=== PATIENT | male | born 1965 | race American Indian/Alaskan Native ===

== ENCOUNTER 2017-04-11 08:50 | Emergency (ER) | payer OTHER ==
[2017-04-11] MEDS ORDERED: Sodium Chloride 0.9% 10 ML Syringe FLUSH PRN (08:57)
--- NOTE | 2017-04-11 08:58 | EDM.PDOC ---
ED HPI GENERAL MEDICAL PROBLEM - General Chief Complaint: Cardiovascular Problem Stated Complaint: FROM [facility] [id number] Time Seen by Provider: 04/11/17 08:58 Source of Information: Reports: Patient, RN, RN Notes Reviewed History Limitations: Reports: No Limitations - History of Present Illness INITIAL COMMENTS - FREE TEXT/NARRATIVE: Patient presents to ER with complaint of chest pain radiating to the back. He states he works at [employer] [facility] [facility] at [place] and began having the pain last night and today. Dr. Chiang from [facility] sent him for further evaluation. Patient denies fever, chills, nausea, vomiting and diarrhea. Patient admits to orthopnea. Onset: Today Duration: Constant Location: Reports: Chest Quality: Reports: Ache Severity: Moderate Improves with: Reports: None Worsens with: Reports: None Associated Symptoms: Reports: No Other Symptoms Mid-Sternal Chest Pain Score (Numeric/FACES): 3 - Related Data Allergies Allergy/AdvReac Type Severity Reaction Status Date / Time No Known Allergies Allergy Verified 04/11/17 09:10 Home Meds: Home Meds . [No Known Home Meds] 07/21/15 [History] Past Medical History - Past Surgical History Musculoskeletal Surgical History: Reports: Arthroscopic Knee Social & Family History - Family History Family Medical History: Noncontributory - Tobacco Use Smoking Status *Q: Never Smoker - Recreational Drug Use Recreational Drug Use: No ED ROS GENERAL - Review of Systems Review Of Systems: ROS reveals no pertinent complaints other than HPI. ED EXAM, GENERAL - Physical Exam Exam: See Below Exam Limited By: No Limitations General Appearance: Alert, WD/WN, No Apparent Distress Eye Exam: Bilateral Eye: Normal Inspection Ears: Normal External Exam, Normal Canal, Hearing Grossly Normal, Normal TMs Nose: Normal Inspection, Normal Mucosa, No Blood Throat/Mouth: Normal Inspection, Normal Lips, Normal Teeth, Normal Gums, Normal Oropharynx, Normal Voice, No Airway Compromise Head: Atraumatic, Normocephalic Neck: Normal Inspection, Supple, Non-Tender, Full Range of Motion Respiratory/Chest: No Respiratory Distress, Lungs Clear, Normal Breath Sounds, No Accessory Muscle Use, Chest Non-Tender Cardiovascular: Normal Peripheral Pulses, Regular Rate, Rhythm, No Edema, No Gallop, No JVD, No Murmur, No Rub GI/Abdominal: Normal Bowel Sounds, Soft, Non-Tender, No Organomegaly, No Distention, No Abnormal Bruit, No Mass (Male) Exam: Deferred Rectal (Males) Exam: Deferred Back Exam: Normal Inspection, Full Range of Motion, NT Extremities: Normal Inspection, Normal Range of Motion, Non-Tender, Normal Capillary Refill, No Pedal Edema Neurological: Alert, Oriented, CN II-XII Intact, Normal Cognition, Normal Gait, Normal Reflexes, No Motor/Sensory Deficits Psychiatric: Normal Affect, Normal Mood Skin Exam: Warm, Dry, Intact, Normal Color, No Rash Lymphatic: No Adenopathy Course - Vital Signs Last Recorded V/S: Last Vital Signs Temp 98.4 F 04/11/17 09:12 Pulse 62 04/11/17 09:12 Resp 20 04/11/17 09:12 BP 145/87 H 04/11/17 09:12 Pulse Ox 98 04/11/17 09:12 - Orders/Labs/Meds Orders: Active Orders 24 hr Category Date Time Status Peripheral IV Care [RC] . DIRECTED Care 04/11/17 08:57 Active Peripheral IV Insertion Adult [OM.PC] Stat Oth 04/11/17 08:57 Ordered Labs: Laboratory Tests 04/11/17 04/11/17 04/11/17 Range/Units 08:57 09:06 09:06 WBC 10.0 (5.0-10.0) 10^3/uL RBC 5.21 (4.6-6.2) 10^6/uL Hgb 14.9 (14.0-18.0) g/dL Hct 44.5 (40.0-54.0) % MCV 85.4 (80-100) fL MCH 28.6 (27.0-34.0) pg MCHC 33.5 (33.0-35.0) g/dL Plt Count 260 (150-450) 10^3/uL Neut % (Auto) 67.8 (42.2-75.2) % Lymph % (Auto) 16.3 L (20.5-50.1) % [place] % (Auto) 9.3 H (2-8) % Eos % (Auto) 5.5 H (1.0-3.0) % Baso % (Auto) 1.1 H (0.0-1.0) % PT 10.6 (9.0-12.0) SEC INR 1.1 (0.9-1.2) Sodium (135-145) mmol/L Potassium (3.6-5.0) mmol/L Chloride (101-111) mmol/L Carbon Dioxide (21.0-31.0) mmol/L Anion Gap BUN (7-18) mg/dL Creatinine (0.6-1.3) mg/dL Est Cr Clr Drug Dosing mL/min Estimated GFR (MDRD) BUN/Creatinine Ratio Glucose (74-105) mg/dL Calcium (8.4-10.2) mg/dl Total Bilirubin (0.2-1.0) mg/dL AST (10-42) IU/L ALT (10-60) IU/L Alkaline Phosphatase (42-121) IU/L Troponin I (0.00-0.02) ng/ml B-Natriuretic Peptide (0-100) pg/ml Total Protein (6.7-8.2) g/dl Albumin (3.2-5.5) g/dl Globulin Albumin/Globulin Ratio Urine Color Yellow (YELLOW) Urine Appearance Clear (CLEAR) Urine pH 6.0 (5.0-9.0) Ur Specific [place] 1.020 (1.005-1.030) Urine Protein Negative (NEGATIVE) Urine Glucose (UA) Negative (NEGATIVE) Urine Ketones Negative (NEGATIVE) Urine Occult Blood Negative (NEGATIVE) Urine Nitrite Negative (NEGATIVE) Urine Bilirubin Negative (NEGATIVE) Urine Urobilinogen 0.2 (0.2-1.0) mg/dL Ur Leukocyte Esterase Negative (NEGATIVE) Urine RBC Not seen /HPF Urine WBC 0-5 (0-5/HPF) /HPF Ur Epithelial Cells Rare /HPF Urine Bacteria Not seen (0-FEW/HPF) /HPF Urine Mucus Moderate H /LPF 04/11/17 04/11/17 Range/Units 09:06 09:06 WBC (5.0-10.0) 10^3/uL RBC (4.6-6.2) 10^6/uL Hgb (14.0-18.0) g/dL Hct (40.0-54.0) % MCV (80-100) fL MCH (27.0-34.0) pg MCHC (33.0-35.0) g/dL Plt Count (150-450) 10^3/uL Neut % (Auto) (42.2-75.2) % Lymph % (Auto) (20.5-50.1) % [place] % (Auto) (2-8) % Eos % (Auto) (1.0-3.0) % Baso % (Auto) (0.0-1.0) % PT (9.0-12.0) SEC INR (0.9-1.2) Sodium 137 (135-145) mmol/L Potassium 4.5 (3.6-5.0) mmol/L Chloride 103 (101-111) mmol/L Carbon Dioxide 27.0 (21.0-31.0) mmol/L Anion Gap 11.5 BUN 12 (7-18) mg/dL Creatinine 0.9 (0.6-1.3) mg/dL Est Cr Clr Drug Dosing 101.39 mL/min Estimated GFR (MDRD) > 60 BUN/Creatinine Ratio 13.33 Glucose 114 H (74-105) mg/dL Calcium 9.0 (8.4-10.2) mg/dl Total Bilirubin 1.1 H (0.2-1.0) mg/dL AST 30 (10-42) IU/L ALT 25 (10-60) IU/L Alkaline Phosphatase 79 (42-121) IU/L Troponin I < 0.02 (0.00-0.02) ng/ml B-Natriuretic Peptide 12 (0-100) pg/ml Total Protein 7.4 (6.7-8.2) g/dl Albumin 4.2 (3.2-5.5) g/dl Globulin 3.2 Albumin/Globulin Ratio 1.31 Urine Color (YELLOW) Urine Appearance (CLEAR) Urine pH (5.0-9.0) Ur Specific [place] (1.005-1.030) Urine Protein (NEGATIVE) Urine Glucose (UA) (NEGATIVE) Urine Ketones (NEGATIVE) Urine Occult Blood (NEGATIVE) Urine Nitrite (NEGATIVE) Urine Bilirubin (NEGATIVE) Urine Urobilinogen (0.2-1.0) mg/dL Ur Leukocyte Esterase (NEGATIVE) Urine RBC /HPF Urine WBC (0-5/HPF) /HPF Ur Epithelial Cells /HPF Urine Bacteria (0-FEW/HPF) /HPF Urine Mucus /LPF Meds: Medications Discontinued Medications Generic Name Dose Route Start Last Admin Trade Name Freq PRN Reason Stop Dose Admin Iopamidol 50 ml 01/30/18 10:54 04/11/17 10:59 Isovue-300 (61%) IVPUSH 04/11/17 10:55 50 ml ONETIME ONE Administration Iopamidol 75 ml 04/11/17 10:55 04/11/17 10:59 Isovue-300 (61%) IVPUSH 04/11/17 10:56 75 ml ONETIME ONE Administration Sodium Chloride 10 ml 04/11/17 08:57 04/11/17 09:09 Saline Flush FLUSH 10 ml ASDIRECTED PRN Administration Keep Vein Open Departure - Departure Time of Disposition: 11:58 Disposition: Home, Self-Care 01 Condition: Fair Clinical Impression: Non-cardiac chest pain Instructions: Nonspecific Chest Pain, [id number] Referrals: Jose Manuel Mccabe MD [Primary Care Provider] - Forms: ED Department Discharge Additional Instructions: Drink plenty of water Follow up with your primary care facility this week. Return to ER as necessary - My Orders Last 24 Hours: My Active Orders 04/11/17 08:57 Peripheral IV Care [RC] . DIRECTED Peripheral IV Insertion Adult [OM.PC] Stat - Assessment/Plan Last 24 Hours: My Active Orders 04/11/17 08:57 Peripheral IV Care [RC] . DIRECTED Peripheral IV Insertion Adult [OM.PC] Stat
[2017-04-11 09:15] VITALS: BP 145/87
[2017-04-11 09:33] LABS: ANION GAP 11.5; CHLORIDE,CL 103 mmol/L (101-111); SODIUM,NA 137 mmol/L (135-145)
[2017-04-11] MEDS ORDERED: Iopamidol 612 MG/ML 50 ML SDV IVPUSH ONE (10:54)
[2017-04-11] MEDS ORDERED: Iopamidol 612 MG/ML 75 ML Bottle IVPUSH ONE (10:55)
--- NOTE | 2017-04-13 18:38 | EKG ---
04/11/2017 - ANNA GRULLON - FINDINGS: A 12-lead EKG shows normal sinus rhythm with heart rate of 63. No significant ST elevation or ST depression noted on this 12-lead EKG. [facility] /[id number]
== END 2017-04-11 12:19 | disposition home or self-care (01) ==
LOC: DL.ED 08:50
DX: R07.89 Other chest pain (principal)
CPT/HCPCS: 36415; 71045; 71260; 74177; 80053; 81001; 83880; 84484; 85025; 85610; 99285; J7050; Q9967

== ENCOUNTER 2019-08-02 06:28 | Day surgery (SDC) | payer BC, OTHER ==
[~2019-08-02 06:28] MED LIST: Dextrose 5%-0.45% NaCl 1,000 ML IV SCH; Sodium Chloride 0.9% 10 ML Syringe FLUSH PRN
[2019-08-02] MEDS ORDERED: Midazolam 1 MG/ML 2 ML SDV IV ONE ×3 (06:29→07:31)
[2019-08-02] MEDS ORDERED: fentaNYL 100 MCG/2 ML SDV IV ONE ×3 (06:29→07:30)
[2019-08-02] MEDS ORDERED: Midazolam 1 MG/ML 2 ML SDV ONE (06:43)
[2019-08-02] MEDS ORDERED: fentaNYL 100 MCG/2 ML SDV ONE (06:43)
[2019-08-02 09:36] VITALS: BP 140/81; PULSE 65
--- NOTE | 2019-08-02 10:19 | OR ---
DATE: 08/02/2019 PROCEDURE: Total colonoscopy. INSTRUMENT USED: PCF-H190DL Olympus video colonoscope. PREMEDICATIONS: Fentanyl 100 mcg intravenous, Versed 2 mg intravenous. Nasal O2 cannula. The procedure was done under pulse oximetry, BP recording, and cardiac exercise specialist. INDICATION: The patient with Hemoccult positive stools. Colonoscopic examination is done for detection of any polypoid lesions and removal, endoscopic hemostasis therapy if needed. DESCRIPTION OF PROCEDURE: Initial rectal exam was unremarkable. Rigid anoscopy showed small internal hemorrhoids without bleeding from them. The colonoscope was passed with ease. Scattered diverticula were noted in the distal left colon along with some deformity. The scope was passed with ease up to the ileocecal area. Photographs were taken of the normal-appearing cecum identified by landmarks of appendiceal orifice and double-bulged ileocecal folds. No bleeding was noted from any of the visualized areas at the commencement of the examination. The bowel preparation was found to be adequate, [place] scale 2 in all the regions, total score 6. No stricture. No vascular ectasia. No large isolated ulcerations seen. No evidence of diffuse inflammatory bowel disease in the form of friability, contact bleeding, or ulcerations. No polyp or tumor mass identified. Probing the proximal sides of folds and flexures, using adequate distention and clearing of the stool material, withdrawal of the scope was made, cecum to rectum time over 6 minutes. No bleeding was noted from any of the visualized areas at the completion of examination. IMPRESSION: 1. Internal hemorrhoids. 2. Diverticulosis. The patient tolerated the procedure well. [facility] /[id number]
--- NOTE | 2019-08-02 12:31 | LETTER ---
08/02/2019 RE: DYLAN GONZALES : 1965 [place] Alegria [facility] [address] [place] [address] Dear Mr. Alegria: Mr. Dylan Gonzales had colonoscopic examination done this morning and he tolerated the procedure well. I herewith send a copy of the endoscopy note and photographs for your review. Thank you. Sincerely, [facility] /[id number]
== END 2019-08-02 09:51 | disposition home or self-care (01) ==
LOC: DL.ENDO 06:28
PROVIDERS: ATTEND Internal Medicine Gastroenterology
DX: K64.8 Other hemorrhoids (principal); K57.30 Diverticulosis of large intestine without perforation or abscess without bleeding; E66.09 Other obesity due to excess calories; I10 Essential (primary) hypertension; E78.5 Hyperlipidemia, unspecified; E11.9 Type 2 diabetes mellitus without complications; N40.0 Benign prostatic hyperplasia without lower urinary tract symptoms; M54.5 Low back pain; Z87.828 Personal history of other (healed) physical injury and trauma; Z90.49 Acquired absence of other specified parts of digestive tract; Z90.89 Acquired absence of other organs; Z79.82 Long term (current) use of aspirin; Z98.890 Other specified postprocedural states; Z68.38 Body mass index [BMI] 38.0-38.9, adult
CPT/HCPCS: G0121; J2250; J3010; J7042

== ENCOUNTER 2019-10-15 00:36 | Emergency (ER) | payer BC, OTHER ==
[2019-10-15] MEDS ORDERED: Acetaminophen/HYDROcodone 325-10 MG Tab PO ONE (00:37)
[2019-10-15 00:53] VITALS: BP 147/85; PULSE 81
[2019-10-15] MEDS ORDERED: HYDROmorphone 1 MG/ML Syringe IVPUSH ONE ×2 (00:53→02:23)
[2019-10-15] MEDS ORDERED: Sodium Chloride 0.9% 1,000 ML IV ONE (00:53)
--- NOTE | 2019-10-15 00:56 | EDM.PDOC ---
ED HPI GENERAL MEDICAL PROBLEM - General Chief Complaint: Abdominal Pain Stated Complaint: STOMACH RIGHT TESTICLE BACK HURTING Time Seen by Provider: 10/15/19 00:45 Source of Information: Reports: Patient History Limitations: Reports: No Limitations - History of Present Illness INITIAL COMMENTS - FREE TEXT/NARRATIVE: This 54 yo male patient reports to the ED with right lower quadrant pain, right testicular pain and right flank pain. The patient reports his symptoms started at about 2200 last night and have continued to get worse since onset. The patient denies any recent injury or trauma to the area. The patient reports he took ibuprofen (800 mg) while at home with no relief. The patient reports his appendix has been removed. Onset Date: 10/14/19 Onset Time: 22:00 Duration: Constant, Getting Worse Location: Reports: Abdomen, Other (right testicle) Quality: Reports: Ache, Dull, Stabbing Severity: Severe Improves with: Reports: None Worsens with: Reports: None Context: Reports: Other Associated Symptoms: Reports: No Other Symptoms Treatments [employer] PR[employer]CTION MANAGER: Reports: NSAIDS Right Lower Abdomen Pain Score (Numeric/FACES): 8 - Related Data Allergies Allergy/AdvReac Type Severity Reaction Status Date / Time No Known Allergies Allergy Verified 10/15/19 00:46 Home Meds: Home Meds Albuterol/Ipratropium [DuoNeb 3.0-0.5 MG/3 ML] 3 mg INH DAILY PRN 08/01/19 [History] Aspirin 81 mg CHEW DAILY 08/01/19 [History] Gabapentin [Neurontin] 1 tab PO BID 08/01/19 [History] Rosuvastatin [Crestor] 20 mg PO DAILY 08/01/19 [History] lisinopriL [Lisinopril] 20 mg PO DAILY 08/01/19 [History] metFORMIN [Glucophage] 500 mg PO BID 08/01/19 [History] Past Medical History HEENT History: Reports: Other (See Below) Other HEENT History: Post Tonsillectomy Cardiovascular History: Reports: Hypertension Respiratory History: Reports: Bronchitis, Recurrent, Sleep Apnea Other Respiratory History: possible apnea, has a test August Gastrointestinal History: Reports: GERD, Other (See Below) Other Gastrointestinal History: Positive hemoocult stools. Status post appendectomy. Hx of GERD Genitourinary History: Reports: Prostate Disorder Other Genitourinary History: Benign prostate hypertrophy Musculoskeletal History: Reports: Back Pain, Chronic Other Musculoskeletal History: Status post left knee trauma and surgery. DDD. Sacroiliitis. Myofascial pain. Myalgia. Hx of: achilles tendon rupture-right, CTS Neurological History: Reports: Other (See Below) Other Neuro History: Chronic right sided low back pain Psychiatric History: Reports: Depression Other Psychiatric History: Hx of depression Endocrine/Metabolic History: Reports: Diabetes, Type II, Obesity/BMI 30+ Other Endocrine/Metabolic History: Hyperlipidemia Hematologic History: Reports: None Immunologic History: Reports: None Oncologic (Cancer) History: Reports: None Dermatologic History: Reports: None - Infectious Disease History Infectious Disease History: Reports: None - Past Surgical History HEENT Surgical History: Reports: Tonsillectomy Cardiovascular Surgical History: Reports: None Respiratory Surgical History: Reports: None GI Surgical History: Reports: Appendectomy Male Surgical History: Reports: None Endocrine Surgical History: Reports: Adrenal Gland Neurological Surgical History: Reports: None Musculoskeletal Surgical History: Reports: Arthroscopic Knee, Other (See Below) Other Musculoskeletal Surgeries/Procedures:: Right achilles tendon repair Dermatological Surgical History: Reports: None Social & Family History - Family History Family Medical History: Noncontributory Cardiac: Reports: Other (See Below) Other Cardiac Family History: Multiple immediate family members with heart disease and DM-endocrine. Father smoked with related difficulties - Caffeine Use Caffeine Use: Reports: Soda Other Caffeine Use: 3 cups per day ED ROS GENERAL - Review of Systems Review Of Systems: Comprehensive ROS is negative, except as noted in HPI. ED EXAM, RENAL/ - Physical Exam Exam: See Below Exam Limited By: No Limitations General Appearance: Alert, WD/WN, Moderate Distress Eye Exam: Bilateral Eye: EOMI, Normal Inspection, PERRL Ears: Normal External Exam, Normal Canal, Hearing Grossly Normal, Normal TMs Nose: Normal Inspection, Normal Mucosa, No Blood Throat/Mouth: Normal Inspection Head: Atraumatic, Normocephalic Neck: Normal Inspection, Supple, Non-Tender, Full Range of Motion Respiratory/Chest: No Respiratory Distress, Lungs Clear, Normal Breath Sounds, No Accessory Muscle Use, Chest Non-Tender Cardiovascular: Normal Peripheral Pulses, Regular Rate, Rhythm, No Edema, No Gallop, No JVD, No Murmur, No Rub GI/Abdominal: Normal Bowel Sounds, No Organomegaly, No Distention, No Abnormal Bruit, No Mass, Pelvis Stable, Tender (RLQ) (Male) Exam: Testicular Tenderness (L), Testicular Tenderness (R) Rectal (Males) Exam: Deferred Back Exam: CVA Tenderness (R) Extremities: Normal Inspection, Normal Range of Motion, Non-Tender, Normal Capillary Refill, No Pedal Edema Neurological: Alert, Oriented, CN II-XII Intact, Normal Cognition, Normal Gait, Normal Reflexes, No Motor/Sensory Deficits Psychiatric: Normal Affect, Normal Mood Skin Exam: Warm, Dry, Intact, Normal Color, No Rash Lymphatic: No Adenopathy Course - Vital Signs Last Recorded V/S: Last Vital Signs Temp 36.3 C 10/15/19 00:46 Pulse 81 10/15/19 00:46 Resp 20 10/15/19 00:46 BP 147/85 H 10/15/19 00:46 Pulse Ox 100 10/15/19 00:46 - Orders/Labs/Meds Orders: Active Orders 24 hr Category Date Time Status CULTURE BLOOD [BC] Stat Lab 10/15/19 00:50 Received Labs: Laboratory Tests 10/15/19 10/15/19 10/15/19 Range/Units 00:50 00:50 00:50 WBC 17.7 H (5.0-10.0) 10^3/uL RBC 5.13 (4.6-6.2) 10^6/uL Hgb 14.9 (14.0-18.0) g/dL Hct 44.4 (40.0-54.0) % MCV 86.5 (80-100) fL MCH 29.0 (27.0-34.0) pg MCHC 33.6 (33.0-35.0) g/dL Plt Count 313 (150-450) 10^3/uL Neut % (Auto) 81.1 H (42.2-75.2) % Lymph % (Auto) 9.3 L (20.5-50.1) % [place] % (Auto) 8.3 H (2-8) % Eos % (Auto) 0.8 L (1.0-3.0) % Baso % (Auto) 0.5 (0.0-1.0) % Sodium 142 (136-145) mmol/L Potassium 4.1 (3.5-5.1) mmol/L Chloride 106 (98-107) mmol/L Carbon Dioxide 24 (21-32) mmol/L Anion Gap 16.1 H (7-13) mEq/L BUN 23 H (7-18) mg/dL Creatinine 1.46 H (0.70-1.30) mg/dL Est Cr Clr Drug Dosing 61.11 mL/min Estimated GFR (MDRD) 51 BUN/Creatinine Ratio 15.8 (No establ ref range) Glucose 126 H (74-99) mg/dL Lactic Acid 2.7 H* (0.4-2.0) mmol/L Calcium 9.1 (8.5-10.1) mg/dL Total Bilirubin 0.3 (0.2-1.0) mg/dL AST 16 (15-37) U/L ALT 24 (16-63) U/L Alkaline Phosphatase 94 (46-116) U/L Total Protein 7.8 (6.4-8.2) g/dL Albumin 4.3 (3.4-5.0) g/dL Globulin 3.5 Albumin/Globulin Ratio 1.2 Urine Color (YELLOW) Urine Appearance (CLEAR) Urine pH (5.0-9.0) Ur Specific [place] (1.005-1.030) Urine Protein (NEGATIVE) Urine Glucose (UA) (NEGATIVE) Urine Ketones (NEGATIVE) Urine Occult Blood (NEGATIVE) Urine Nitrite (NEGATIVE) Urine Bilirubin (NEGATIVE) Urine Urobilinogen (0.2-1.0) mg/dL Ur Leukocyte Esterase (NEGATIVE) U Hyaline Cast (Auto) Urine RBC /HPF Urine WBC (0-5/HPF) /HPF Ur Epithelial Cells (NOT SEEN) /HPF Calcium Oxalate Crystal (NOT SEEN) /HPF Amorphous Sediment (NOT SEEN) /HPF Urine Bacteria (0-FEW/HPF) /HPF Urine Mucus (NOT SEEN) /LPF Ethyl Alcohol < 3 (0) mg/dL 10/15/19 Range/Units 00:59 WBC (5.0-10.0) 10^3/uL RBC (4.6-6.2) 10^6/uL Hgb (14.0-18.0) g/dL Hct (40.0-54.0) % MCV (80-100) fL MCH (27.0-34.0) pg MCHC (33.0-35.0) g/dL Plt Count (150-450) 10^3/uL Neut % (Auto) (42.2-75.2) % Lymph % (Auto) (20.5-50.1) % [place] % (Auto) (2-8) % Eos % (Auto) (1.0-3.0) % Baso % (Auto) (0.0-1.0) % Sodium (136-145) mmol/L Potassium (3.5-5.1) mmol/L Chloride (98-107) mmol/L Carbon Dioxide (21-32) mmol/L Anion Gap (7-13) mEq/L BUN (7-18) mg/dL Creatinine (0.70-1.30) mg/dL Est Cr Clr Drug Dosing mL/min Estimated GFR (MDRD) BUN/Creatinine Ratio (No establ ref range) Glucose (74-99) mg/dL Lactic Acid (0.4-2.0) mmol/L Calcium (8.5-10.1) mg/dL Total Bilirubin (0.2-1.0) mg/dL AST (15-37) U/L ALT (16-63) U/L Alkaline Phosphatase (46-116) U/L Total Protein (6.4-8.2) g/dL Albumin (3.4-5.0) g/dL Globulin Albumin/Globulin Ratio Urine Color Yellow (YELLOW) Urine Appearance Slightly cloudy (CLEAR) Urine pH 6.0 (5.0-9.0) Ur Specific [place] >= 1.030 (1.005-1.030) Urine Protein 100 H (NEGATIVE) Urine Glucose (UA) Negative (NEGATIVE) Urine Ketones Negative (NEGATIVE) Urine Occult Blood Trace-intact H (NEGATIVE) Urine Nitrite Negative (NEGATIVE) Urine Bilirubin Negative (NEGATIVE) Urine Urobilinogen 0.2 (0.2-1.0) mg/dL Ur Leukocyte Esterase Negative (NEGATIVE) U Hyaline Cast (Auto) Rare Urine RBC 0-5 /HPF Urine WBC 0-5 (0-5/HPF) /HPF Ur Epithelial Cells Rare (NOT SEEN) /HPF Calcium Oxalate Crystal Few H (NOT SEEN) /HPF Amorphous Sediment Few (NOT SEEN) /HPF Urine Bacteria Occasional (0-FEW/HPF) /HPF Urine Mucus Occasional (NOT SEEN) /LPF Ethyl Alcohol (0) mg/dL Meds: Medications Discontinued Medications Generic Name Dose Route Start Last Admin Trade Name Gab PRN Reason Stop Dose Admin Hydrocodone Bitart/Acetaminophen Confirm 10/15/19 02:37 10/15/19 03:00 Clawson 325-10 Mg Administered 10/15/19 02:38 Not Given Dose 1 tab .ROUTE .STK-MED ONE Hydromorphone HCl 1 mg 10/15/19 00:53 10/15/19 01:00 Dilaudid IVPUSH 10/15/19 00:54 1 mg ONETIME ONE Administration Hydromorphone HCl 1 mg 10/15/19 02:23 10/15/19 02:28 Dilaudid IVPUSH 10/15/19 02:24 1 mg ONETIME ONE Administration Sodium Chloride 1,000 mls @ 999 mls/hr 10/15/19 00:53 10/15/19 01:00 Normal Saline IV 10/15/19 01:53 999 mls/hr .BOLUS ONE Administration Iopamidol 100 ml 10/15/19 01:40 10/15/19 02:15 Isovue-300 (61%) IVPUSH 10/15/19 01:41 100 ml ONETIME ONE Administration Ketorolac Tromethamine 30 mg 10/15/19 02:29 10/15/19 02:31 Toradol IVPUSH 10/15/19 02:30 30 mg ONETIME ONE Administration Tamsulosin HCl 0.4 mg 10/15/19 02:29 10/15/19 02:33 Flomax PO 10/15/19 02:30 0.4 mg ONETIME ONE Administration Departure - Departure Time of Disposition: 03:01 Disposition: Home, Self-Care 01 Condition: Fair Clinical Impression: Kidney stone on right side - Discharge Information *PRESCRIPTION DRUG MONITORING PROGRAM REVIEWED*: Not Applicable *COPY OF PRESCRIPTION DRUG MONITORING REPORT IN PATIENT ERIK: Not Applicable Instructions: Kidney Stones, [id number] Forms: ED Department Discharge Care Plan Goals: The patient was advised of the examination, lab, ultrasound and CT results during the visit. The patient was given IV fluids, IV Dilaudid (for pain), IV Toradol (for pain) and an oral dose of Flomax while in the ED. The patient was discharged with a script for Toradol (10 mg) #20 to take 1 by mouth every 6 hours, Flomax (0.4 mg) #7 to take 1 by mouth daily and Clawson (10/325) #4 to take 1 by mouth every 6 hours as needed for breakthrough pain. The patient was also given an oral dose of [place] (10/325) #1 to take for increased pain. The patient was encouraged to follow-up with his primary care facility this week for continued evaluation and further care. If the patient has any additional symptoms or concerns, the patient should either return to the emergency department or visit his primary care facility. Sepsis Event Note (ED) - Focused Exam Vital Signs: Vital Signs Temp Pulse Resp BP Pulse Ox 10/15/19 00:46 36.3 C 81 20 147/85 H 100 - My Orders Last 24 Hours: My Active Orders 10/15/19 00:50 CULTURE BLOOD [BC] Stat - Assessment/Plan Last 24 Hours: My Active Orders 10/15/19 00:50 CULTURE BLOOD [BC] Stat
[2019-10-15 01:18] LABS: ANION GAP 16.1 mEq/L (7-13); CHLORIDE,CL 106 mmol/L (98-107); SODIUM,NA 142 mmol/L (136-145)
[2019-10-15] MEDS ORDERED: Iopamidol 612 MG/ML 100 ML Bottle IVPUSH ONE (01:40)
--- NOTE | 2019-10-15 01:56 | US ---
PROCEDURE INFORMATION: Exam: US Scrotum Exam date and time: 10/15/2019 1:22 AM Age: 54 years old Clinical indication: Groin pain and scrotum pain; Additional info: Right testicle pain TECHNIQUE: Imaging protocol: Real-time ultrasound of the scrotum and contents with color Doppler and image documentation. COMPARISON: No relevant prior studies available. FINDINGS: Right testicle: Right testicle measures 3 x 4.7 x 2.6 cm. Normal waveforms. Left testicle: Left testicle measures 4.3 x 2.8 x 3.1 cm. Normal waveforms. Epididymides: Normal. Scrotum: Small right hydrocele. IMPRESSION: No evidence of testicular torsion bilaterally. Small right hydrocele.
--- NOTE | 2019-10-15 01:57 | US ---
PROCEDURE INFORMATION: Exam: US Duplex Artery and Vein of the Abdominal and/or Reproductive Organs. Complete Scrotum Exam date and time: 10/15/2019 1:22 AM Age: 54 years old Clinical indication: Pelvic pain; Additional info: RT testicle pain TECHNIQUE: Imaging protocol: Real-time duplex ultrasound scan of the arterial and venous flow with color Doppler flow and spectral waveform analysis with image documentation. Complete duplex exam focused on the scrotum. Duplex exam was added to evaluate for torsion and other vascular conditions. COMPARISON: No relevant prior studies available. FINDINGS: Right testicle: No torsion. Normal arterial and venous waveforms. Left testicle: No torsion. Normal arterial and venous waveforms. IMPRESSION: No testicular torsion bilaterally.
--- NOTE | 2019-10-15 02:25 | CT ---
PROCEDURE INFORMATION: Exam: CT Abdomen And Pelvis With Contrast Exam date and time: 10/15/2019 1:56 AM Age: 54 years old Clinical indication: Pain; Other: Rlq; Prior surgery; Surgery date: 6+ months; Surgery type: Appendectomy; Additional info: Rlq abdominal pain (wbc 17.7) TECHNIQUE: Imaging protocol: Computed tomography of the abdomen and pelvis with intravenous contrast. Radiation optimization: All CT scans at this facility use at least one of these dose optimization techniques: automated exposure control; mA and/or kV adjustment per patient size (includes targeted exams where dose is matched to clinical indication); or iterative reconstruction. Contrast material: ISOVUE; Contrast volume: 100 ml; Contrast route: INTRAVENOUS (IV); COMPARISON: No relevant prior studies available. FINDINGS: Liver: Normal. No mass. Gallbladder and bile ducts: Normal. No calcified stones. No ductal dilation. Pancreas: Normal. No ductal dilation. Spleen: Normal. No splenomegaly. Adrenals: Normal. No mass. Kidneys and ureters: Horseshoe kidney. Mild hydroureteronephrosis of the right moiety to the level of a punctate 2-3 mm calculus at the right ureterovesicular junction. Stomach and bowel: Diverticulosis of the colon. No evidence of acute diverticulitis. Appendix: No evidence of appendicitis. Intraperitoneal space: Unremarkable. No free air. No significant fluid collection. Vasculature: Unremarkable. No abdominal aortic aneurysm. Lymph nodes: Unremarkable. No enlarged lymph nodes. Bladder: Unremarkable as visualized. Reproductive: Unremarkable as visualized. Bones/joints: Degenerative disease and facet hypertrophy of the lower lumbar spine. Stenosis of the spinal canal and neural foramina at L5-S1. Soft tissues: Unremarkable. IMPRESSION: Horseshoe kidney. Mild hydroureteronephrosis of the right moiety to the level of a punctate 2-3 mm calculus at the right ureterovesicular junction.
[2019-10-15] MEDS ORDERED: Tamsulosin 0.4 MG Cap.ER PO ONE (02:29)
[2019-10-15] MEDS ORDERED: Ketorolac 30 MG/ML SDV IVPUSH ONE (02:29)
[2019-10-15] MEDS ORDERED: Acetaminophen/HYDROcodone 325-10 MG Tab ONE (02:37)
[2019-10-15] MEDS ORDERED: Ondansetron 4 MG Tab.DIS PO ONE (03:10)
== END 2019-10-15 03:14 | disposition home or self-care (01) ==
LOC: DL.ED 00:36
DX: N13.2 Hydronephrosis with renal and ureteral calculous obstruction (principal); I10 Essential (primary) hypertension; E11.9 Type 2 diabetes mellitus without complications; E78.5 Hyperlipidemia, unspecified; E66.9 Obesity, unspecified; Z68.37 Body mass index [BMI] 37.0-37.9, adult; Z79.84 Long term (current) use of oral hypoglycemic drugs; Z79.82 Long term (current) use of aspirin; Z79.899 Other long term (current) drug therapy; Z90.49 Acquired absence of other specified parts of digestive tract
CPT/HCPCS: 36415; 74177; 76870; 80053; 80307; 81001; 83605; 85025; 87040; 93975; 96361; 96374; 96375; 96376; 99284; A9270; J1170; J1885; J7030; Q9967

== ENCOUNTER 2021-03-21 02:15 | Emergency (ER) | payer BC, OTHER ==
[2021-03-21] MEDS: Aspirin 81 MG Tab.Chew PO ONE (02:44)
--- NOTE | 2021-03-21 02:45 | EDM.PDOC ---
ED HPI GENERAL MEDICAL PROBLEM - General Chief Complaint: Chest Pain Stated Complaint: CHEST PAIN Time Seen by Provider: 03/21/21 02:35 Source of Information: Reports: Patient History Limitations: Reports: No Limitations - History of Present Illness INITIAL COMMENTS - FREE TEXT/NARRATIVE: This 56 yo male patient reports to the ED with left sided chest tightness. The patient reports he started to notice some chest pain at about 2300 last night, his symptoms have continued until presentation in the ED. The patient reports he has a history of an "enlarged heart" as seen during a stress test and echo. The patient reports he has also had a history of GERD. The patient reports he ate at about 2030 last night and had been sitting up watching movies with his until the pain started. The patient reports he has not taken anything for his pain at this time. The patient reports he has had constipation and did take a laxative last night. Onset Date: 03/20/21 Onset Time: 23:00 Duration: Constant, Getting Worse Location: Reports: Chest (left chest) Quality: Reports: Dull, Other (Tightness) Severity: Moderate Improves with: Reports: None Worsens with: Reports: None Context: Reports: Other Associated Symptoms: Reports: Chest Pain Left Chest Pain Score (Numeric/FACES): 5 - Related Data Allergies Allergy/AdvReac Type Severity Reaction Status Date / Time No Known Allergies Allergy Verified 03/21/21 02:30 Home Meds: Home Meds Aspirin 81 mg CHEW DAILY 08/01/19 [History] lisinopriL [Lisinopril] 40 mg PO DAILY 08/01/19 [History] Past Medical History HEENT History: Reports: Other (See Below) Other HEENT History: Post Tonsillectomy Cardiovascular History: Reports: Hypertension Respiratory History: Reports: Bronchitis, Recurrent, Sleep Apnea Other Respiratory History: possible apnea, has a test August Gastrointestinal History: Reports: GERD, Other (See Below) Other Gastrointestinal History: Positive hemoocult stools. Status post appendectomy. Hx of GERD Genitourinary History: Reports: Prostate Disorder Other Genitourinary History: Benign prostate hypertrophy Musculoskeletal History: Reports: Back Pain, Chronic Other Musculoskeletal History: Status post left knee trauma and surgery. DDD. Sacroiliitis. Myofascial pain. Myalgia. Hx of: achilles tendon rupture-right, CTS Neurological History: Reports: Other (See Below) Other Neuro History: Chronic right sided low back pain Psychiatric History: Reports: Depression Other Psychiatric History: Hx of depression Endocrine/Metabolic History: Reports: Diabetes, Type II, Obesity/BMI 30+ Other Endocrine/Metabolic History: Hyperlipidemia Hematologic History: Reports: None Immunologic History: Reports: None Oncologic (Cancer) History: Reports: None Dermatologic History: Reports: None - Infectious Disease History Infectious Disease History: Reports: None - Past Surgical History HEENT Surgical History: Reports: Tonsillectomy Cardiovascular Surgical History: Reports: None Respiratory Surgical History: Reports: None GI Surgical History: Reports: Appendectomy, Cholecystectomy Male Surgical History: Reports: None Endocrine Surgical History: Reports: Adrenal Gland Neurological Surgical History: Reports: None Musculoskeletal Surgical History: Reports: Arthroscopic Knee, Other (See Below) Other Musculoskeletal Surgeries/Procedures:: Right achilles tendon repair Dermatological Surgical History: Reports: None Social & Family History - Family History Family Medical History: No Pertinent Family History Cardiac: Reports: Other (See Below) Other Cardiac Family History: Multiple immediate family members with heart disease and DM-endocrine. Father smoked with related difficulties - Tobacco Use Tobacco Use Status *Q: Never Tobacco User Second Hand Smoke Exposure: No - Caffeine Use Caffeine Use: Reports: Soda Other Caffeine Use: 3 cups per day - Recreational Drug Use Recreational Drug Use: No ED ROS GENERAL - Review of Systems Review Of Systems: Comprehensive ROS is negative, except as noted in HPI. ED EXAM, GENERAL - Physical Exam Exam: See Below Exam Limited By: No Limitations General Appearance: Alert, WD/WN, Anxious Eye Exam: Bilateral Eye: EOMI, Normal Inspection, PERRL Ears: Normal External Exam, Normal Canal, Hearing Grossly Normal, Normal TMs Nose: Normal Inspection, Normal Mucosa, No Blood Throat/Mouth: Normal Inspection, Normal Lips, Normal Teeth, Normal Gums, Normal Oropharynx, Normal Voice, No Airway Compromise Head: Atraumatic, Normocephalic Neck: Normal Inspection, Supple, Non-Tender, Full Range of Motion Respiratory/Chest: No Respiratory Distress, Lungs Clear, Normal Breath Sounds, No Accessory Muscle Use, Chest Non-Tender Cardiovascular: Normal Peripheral Pulses, Regular Rate, Rhythm, No Edema, No G allop, No JVD, No Murmur, No Rub GI/Abdominal: Normal Bowel Sounds, Soft, Non-Tender, No Organomegaly, No Distention, No Abnormal Bruit, No Mass, Pelvis Stable, Other (obese) (Male) Exam: Deferred Rectal (Males) Exam: Deferred Back Exam: Normal Inspection, Full Range of Motion, NT Extremities: Normal Inspection, Normal Range of Motion, Non-Tender, Normal Capillary Refill, No Pedal Edema Neurological: Alert, Oriented, CN II-XII Intact, Normal Cognition, Normal Gait, Normal Reflexes, No Motor/Sensory Deficits Psychiatric: Normal Affect, Normal Mood Skin Exam: Warm, Dry, Intact, Normal Color, No Rash Lymphatic: No Adenopathy #1 Interpretation EKG Date: 03/21/21 Time: 02:23 Rhythm: NSR Rate (Beats/Min): 55 Combs: Normal P-Wave: Present QRS: Normal ST-T: Normal QT: Normal Comparison: No Change Course - Vital Signs Last Recorded V/S: Last Vital Signs Temp 99.1 F 03/21/21 02:19 Pulse 60 03/21/21 02:19 Resp 20 03/21/21 02:19 BP 169/79 H 03/21/21 02:19 Pulse Ox 100 03/21/21 02:19 - Orders/Labs/Meds Orders: Active Orders 24 hr Category Date Time Status Chest 1V Frontal [CR] Urgent Exams 03/21/21 02:36 Taken COVID-19/FLU A+B [[facility]LEC] Urgent Lab 03/21/21 02:43 Received CULTURE BLOOD [BC] Stat Lab 03/21/21 02:45 Received Labs: Laboratory Tests 03/21/21 03/21/21 03/21/21 Range/Units 02:45 02:45 02:45 WBC 9.2 (5.0-10.0) 10^3/uL RBC 5.14 (4.6-6.2) 10^6/uL Hgb 14.6 (14.0-18.0) g/dL Hct 44.0 (40.0-54.0) % MCV 85.6 (80-100) fL MCH 28.4 (27.0-34.0) pg MCHC 33.2 (33.0-35.0) g/dL Plt Count 265 (150-450) 10^3/uL Neut % (Auto) 54.1 (42.2-75.2) % Lymph % (Auto) 26.0 (20.5-50.1) % Teller % (Auto) 12.3 H (2-8) % Eos % (Auto) 6.3 H (1.0-3.0) % Baso % (Auto) 1.3 H (0.0-1.0) % Sodium 139 (136-145) mmol/L Potassium 4.0 (3.5-5.1) mmol/L Chloride 101 (98-107) mmol/L Carbon Dioxide 26 (21-32) mmol/L Anion Gap 16.0 H (7-13) mEq/L BUN 16 (7-18) mg/dL Creatinine 1.23 (0.70-1.30) mg/dL Est Cr Clr Drug Dosing 70.89 mL/min Estimated GFR (MDRD) > 60 BUN/Creatinine Ratio 13.0 (No establ ref range) Glucose 110 H (70-99) mg/dL Lactic Acid 1.6 (0.4-2.0) mmol/L Calcium 8.7 (8.5-10.1) mg/dL Total Bilirubin 0.5 (0.2-1.0) mg/dL AST 14 L (15-37) U/L ALT 20 (16-63) U/L Alkaline Phosphatase 91 (46-116) U/L Troponin I High Sens 9 (<=76) pg/mL Total Protein 7.3 (6.4-8.2) g/dL Albumin 3.8 (3.4-5.0) g/dL Globulin 3.5 Albumin/Globulin Ratio 1.1 Meds: Medications Discontinued Medications Generic Name Dose Route Start Last Admin Trade Name Freq PRN Reason Stop Dose Admin Al Hydroxide/Mg Hydroxide 30 ml 03/21/21 03:26 Gi Cocktail Oral Solution 30 Ml PO 03/21/21 03:27 ONETIME ONE Aspirin 324 mg 03/21/21 02:31 03/21/21 02:44 Aspirin 81 Mg Tab.Chew PO 03/21/21 02:32 324 mg ONETIME ONE Administration - Radiology Interpretation Free Text/Narrative:: [facility] Final Radiology Report Call: [phone] assistance Online chat: [email or web address] Name: ANNA GRULLON Age: 56Years M Date: 03/21/2021 SSN: -- : [id number] Study: CR CHEST 1V FRONTAL Requesting Physician: Julio Jqauez Images: 1 Addl Studies: Provided Clinical History: chest pain Contrast: Contrast Medium: Contrast Amount: Contrast Method: CONFIDENTIALITY STATEMENT This report is intended only for use by the referring physician, and only in accordance with law. If you received this in error, call [phone]. Page 1 of 1 PROCEDURE INFORMATION: Exam: XR Chest Exam date and time: 03/21/2021 2:57 AM Age: 56 years old Clinical indication: Chest pain TECHNIQUE: Imaging protocol: Upright portable AP view of the chest COMPARISON: Chest x-ray dated 01/19/2018 FINDINGS: No evidence for cardiopulmonary pathology. The bony thorax is intact, and superficial soft tissues are unremarkable. IMPRESSION: No evidence for cardiopulmonary pathology. Thank you for allowing us to participate in the care of your patient. Dictated and Authenticated by: Joel Alvarez MD 03/21/2021 3:35 AM Central Time ([place] & [place]) Departure - Departure Time of Disposition: 04:02 Disposition: Home, Self-Care 01 Condition: Fair Clinical Impression: Nonspecific chest pain GERD (gastroesophageal reflux disease) Qualifiers: Esophagitis presence: esophagitis presence not specified Qualified Code(s): K21.9 - Gastro-esophageal reflux disease without esophagitis Forms: ED Department Discharge Care Plan Goals: The patient was advised of the examination, lab, EKG and x-ray results during the visit. The patient was given an oral dose of aspirin and an oral GI cocktail with some symptom improvement during the visit. The patient was discharged with a script for Omeprazole (20 mg) #30 to take 1 by mouth daily (20 minuted prior to eating). The patient should follow-up with his primary care facility for continued evaluation and management. If the patient has any additional symptoms or concerns, the patient should either return to the emergency department or visit his primary care facility. Sepsis Event Note (ED) - Focused Exam Vital Signs: Vital Signs Temp Pulse Resp BP Pulse Ox 03/21/21 02:19 99.1 F 60 20 169/79 H 100 - My Orders Last 24 Hours: My Active Orders 03/21/21 02:36 Chest 1V Frontal [CR] Urgent 03/21/21 02:43 COVID-19/FLU A+B [MOLEC] Urgent 03/21/21 02:45 CULTURE BLOOD [BC] Stat - Assessment/Plan Last 24 Hours: My Active Orders 03/21/21 02:36 Chest 1V Frontal [CR] Urgent 03/21/21 02:43 COVID-19/FLU A+B [MOLEC] Urgent 03/21/21 02:45 CULTURE BLOOD [BC] Stat
[2021-03-21 03:10] LABS: CHLORIDE,CL 101 mmol/L (98-107); SODIUM,NA 139 mmol/L (136-145)
[2021-03-21 03:28] LABS: CORONAVIRUS COVID-19 NAA NEGATIVE (NEGATIVE)
--- NOTE | 2021-03-21 03:35 | CR ---
PROCEDURE INFORMATION: Exam: XR Chest Exam date and time: 03/21/2021 2:57 AM Age: 56 years old Clinical indication: Chest pain TECHNIQUE: Imaging protocol: Upright portable AP view of the chest COMPARISON: Chest x-ray dated 01/19/2018 FINDINGS: No evidence for cardiopulmonary pathology. The bony thorax is intact, and superficial soft tissues are unremarkable. IMPRESSION: No evidence for cardiopulmonary pathology.
[2021-03-21] MEDS: GI Cocktail Oral Solution 30 ML PO ONE (03:36)
[2021-03-21 04:24] VITALS: BP 140/85; PULSE 66
== END 2021-03-21 04:14 | disposition home or self-care (01) ==
LOC: DL.ED 02:15
DX: R07.89 Other chest pain (principal); K21.9 Gastro-esophageal reflux disease without esophagitis; I10 Essential (primary) hypertension; E11.9 Type 2 diabetes mellitus without complications; E66.9 Obesity, unspecified; Z68.38 Body mass index [BMI] 38.0-38.9, adult; Z79.82 Long term (current) use of aspirin; Z79.899 Other long term (current) drug therapy; Z20.822 Contact with and (suspected) exposure to COVID-19
CPT/HCPCS: 0240U; 36415; 71045; 80053; 83605; 84484; 85025; 87040; 93005; 99285; A9270

== ENCOUNTER 2022-02-21 10:09 | Emergency (ER) | payer BC, OTHER ==
[~2022-02-21 10:09] MED LIST changes: -Dextrose 5%-0.45% NaCl 1,000 ML IV SCH
[2022-02-21 10:28] VITALS: BP 137/81; PULSE 58
[2022-02-21 10:47] LABS: PTT,PARTIAL THROMBOPLSTIN TIME 25.9 SEC (22.0-34.0)
[2022-02-21 10:51] LABS: ANION GAP 13.3 mEq/L (7-13)
[2022-02-21 11:17] LABS: RESPIRATORY SYNCYTIAL VIR NAA NEGATIVE (NEGATIVE)
[2022-02-21 11:20] LABS: CORONAVIRUS COVID-19 NAA POSITIVE (NEGATIVE)
== END 2022-02-21 11:52 | disposition home or self-care (01) ==
LOC: DL.ED 10:09
DX: U07.1 COVID-19 (principal); I10 Essential (primary) hypertension; K21.9 Gastro-esophageal reflux disease without esophagitis; E11.9 Type 2 diabetes mellitus without complications; E66.9 Obesity, unspecified; Z68.39 Body mass index [BMI] 39.0-39.9, adult; Z79.82 Long term (current) use of aspirin; Z79.899 Other long term (current) drug therapy
CPT/HCPCS: 0241U; 36415; 71045; 80053; 82150; 83690; 83880; 84484; 85025; 85610; 85730; 93005; 99285

== ENCOUNTER 2025-01-23 15:49 | Emergency (ER) | payer BC, OTHER ==
[2025-01-23] MEDS: Ketorolac 30 MG/ML SDV IVPUSH ONE (15:51)
[2025-01-23 15:57] LABS: BASOPHILS PERCENT AUTO 1.3 % (0.0-1.0); EOSINOPHILS PERCENT AUTO 3.2 % (1.0-3.0); LYMPHOCYTES PERCENT AUTO 20.6 % (20.5-50.1); MONOCYTES PERCENT AUTO 10.7 % (2-8); NEUTROPHILS PERCENT AUTO 64.2 % (42.2-75.2); PLATELET COUNT,PLT 244 10^3/uL (150-450); RED BLOOD CELL COUNT 4.65 10^6/uL (4.6-6.2); WHITE BLOOD CELL COUNT,WBC 9.3 10^3/uL (5.0-10.0)
[2025-01-23 16:20] LABS: A/G RATIO 1.2; ALANINE AMINOTRANSFERASE,ALT 21.0 U/L (16-63); ASPARTATE AMNIOTRANSFERASE,AST 18.0 U/L (15-37); BILIRUBIN TOTAL 0.4 mg/dL (0.2-1.0); BLOOD UREA NITROGEN,BUN 21.0 mg/dL (7-18); CARBON DIOXIDE,CO2 24.0 mmol/L (21-32); CHLORIDE,CL 108.0 mmol/L (98-107); CREATININE 0.96 mg/dL (0.70-1.30); EST CRCL DRUG DOSING (CG) 87.66 mL/min; ESTIMATED GFR 92.0 mL/min (>=60); GLUCOSE RANDOM 113.0 mg/dL (70-99); POTASSIUM,K 4.1 mmol/L (3.5-5.1); PROTEIN TOTAL,TP 7.0 g/dL (6.4-8.2); SODIUM,NA 141.0 mmol/L (136-145)
[2025-01-23 17:05] VITALS: BP 125/78; PULSE 55
== END 2025-01-23 16:55 | disposition home or self-care (01) ==
LOC: DL.ED 15:49
DX: M54.6 Pain in thoracic spine (principal); I10 Essential (primary) hypertension; K21.9 Gastro-esophageal reflux disease without esophagitis; E11.9 Type 2 diabetes mellitus without complications; E66.9 Obesity, unspecified; Z68.38 Body mass index [BMI] 38.0-38.9, adult; Z79.82 Long term (current) use of aspirin; Z79.899 Other long term (current) drug therapy; Z79.85 Long-term (current) use of injectable non-insulin antidiabetic drugs
CPT/HCPCS: 36415; 71045; 80053; 83735; 84484; 85025; 85379; 93005; 96374; 99285; J1885; 93010; 99284